=== PATIENT | male | born 1965 ===

== ENCOUNTER 2023-11-09 21:17 | Emergency (ER) | payer MEDICAID, SELFPAY ==
[~2023-11-09] VITALS: Ht 177.8 cm; Wt 98.8 kg
[2023-11-09 23:56] VITALS: BP 148/98; PULSE 88; RESP 18; O2SAT 95
== END 2023-11-10 01:47 | disposition home or self-care (01) ==
LOC: EDBD 21:17 → ER 21:17
DX: S50.11XA Contusion of right forearm, initial encounter (principal); R22.41 Localized swelling, mass and lump, right lower limb; W18.09XA Striking against other object with subsequent fall, initial encounter; Y93.89 Activity, other specified; Y92.89 Other specified places as the place of occurrence of the external cause; Y99.8 Other external cause status
CPT/HCPCS: 93971